=== PATIENT | male | born 1990 | race Caucasian/White ===

== ENCOUNTER 2019-03-03 09:45 | Day surgery (SDC) | payer OTHER ==
[~2019-03-03] VITALS: Ht 180.3 cm; Wt 139.1 kg
[~2019-03-03 09:45] MED LIST: Norco 5-325 Ta1 EACH PO; Polytrim Eye Dr10 ML RIGHTEYE; Zestril40 MG PO
--- NOTE | 2019-03-03 10:27 | NUR ---
History, Chart, Medications and Allergies reviewed before start of procedure. Patient confirms NPO status and agrees with scheduled surgery. Lungs clear T/O to Auscultation, DECREASED IN BASES. Patient reports completing Chlorhexadine shower X2 prior to admission to hospital. Pre-Op teaching done. Pt verbalizes understanding. Patient States Post-Procedure ride home has been arranged.
--- NOTE | 2019-03-03 14:20 | NUR ---
O2 OFF AT 1405.
--- NOTE | 2019-03-03 15:56 | NUR ---
PATIENT D/C IN STABLE CONDITION, WITH ACCEPTABLE PAIN LEVEL AND NO COMPLAINT OF NAUSEA. SCRIPT GIVEN TO PATIENT, WHO WILL HAVE HIS MOM PICK IT UP FOR HIM. ADVISED PATIENT TO USE CPAP AT REST AT HOME AT ALL TIMES UNTIL NO LONGER TAKING NARCOTICS.
== END 2019-03-03 22:51 | disposition home or self-care (01) ==
LOC: ORSCMMR 09:45 → ORD 12:30 → ORSCMMR 22:51
PROVIDERS: Orthopaedic Surgery
PROC: 0PSH04Z Reposition Right Radius with Internal Fixation Device, Open Approach (ICD-10-PCS; principal; 2019-03-03 11:20)
PROC: 01N50ZZ Release Median Nerve, Open Approach (ICD-10-PCS; principal; 2019-03-03 11:20)
DX: S52.571A Other intraarticular fracture of lower end of right radius, initial encounter for closed fracture (principal); V86.55XA Driver of 3- or 4- wheeled all-terrain vehicle (ATV) injured in nontraffic accident, initial encounter; I10 Essential (primary) hypertension; Z79.899 Other long term (current) drug therapy; E66.01 Morbid (severe) obesity due to excess calories; Z68.41 Body mass index [BMI] 40.0-44.9, adult
CPT/HCPCS: 73100; C1713; J0330; J0690; J1100; J2250; J2370; J2405; J2704; J2710; J3010; J7120

== ENCOUNTER → 2022-10-01 | Outpatient (CLI) | payer OTHER | END | disposition home or self-care (01) | LOC: LAB SHORT 13:11 | DX: R07.9 Chest pain, unspecified (principal) | CPT/HCPCS: 84484; 85379 ==